=== PATIENT | female | born 1995 | race Caucasian/White ===

== ENCOUNTER 2017-05-10 01:10 | Inpatient (IN) | payer MEDICAID ==
[~2017-05-10 01:10] MED LIST: COLACE-DPS100 MG PO; MOTRIN IB200 MG PO; NIPPLECREAM TP; PRENATAL VIT1 TAB PO; TYLENOL #3 DPS1 TAB PO
[2017-05-12] MEDS ORDERED: OXY IR DPS5 MG PO (14:33)
== END 2017-05-11 14:25 | disposition home or self-care (01) | DRG 775 ==
DX: O48.0 Post-term pregnancy (principal); O70.1 Second degree perineal laceration during delivery; Z23 Encounter for immunization; Z3A.40 40 weeks gestation of pregnancy; Z37.0 Single live birth